=== PATIENT | male | born 1965 | race Caucasian/White ===

== ENCOUNTER 2017-11-01 13:53 | Inpatient (IN) | payer SELFPAY ==
[~2017-11-01] VITALS: Ht 172.7 cm; Wt 51.3 kg
[2017-11-01 15:13] LABS: PLATELET COUNT 355 x10^3mcL (130-400)
[2017-11-01 15:25] LABS: RED CELL DISTRIBUTION WIDTH 21.2 % (11.5-14.5)
[2017-11-01 15:27] LABS: CALCIUM 9.3 mg/dL (8.5-10.1); CARBON DIOXIDE 36.3 mmol/L (21-32); CHLORIDE SERUM 97 mmol/L (98-107); CREATININE SERUM 1.2 mg/dL (0.7-1.3); GFR1 > 60 mL/min; GLUCOSE SERUM 187 mg/dL (74-106); POTASSIUM SERUM 3.3 mmol/L (3.5-5.1); SODIUM SERUM 142 mmol/L (136-145)
[2017-11-01 15:41] LABS: ALBUMIN 3.9 g/dL (3.4-5.0); ALKALINE PHOSPHATASE 89 U/L (46-116); ALT/SGPT 22 U/L (16-63); AST/SGOT 13 U/L (15-37); LIPASE 85 IU/L (73-393); TOTAL PROTEIN, SERUM 7.4 g/dL (6.4-8.2)
[2017-11-01 15:45] LABS: BAND NEUTROPHIL 3 % (0-10); BASOPHIL 0 % (0-2); MONOCYTE 5 % (0-7); SEGMENTED NEUTROPHILS 85 % (37-75)
[2017-11-01 15:46] LABS: rbc morphology (normal/abnorm) ABNORMAL (NORMAL)
[2017-11-01] MEDS ORDERED: GOOD SENSE OMEP20 MG PO (16:45)
[2017-11-01 18:33] LABS: CHOLESTEROL/HDL RATIO 2.4
[2017-11-01 18:44] LABS: T3 TOTAL 0.62 ng/mL
[2017-11-01 19:05] LABS: FREE T4 1.32 ng/dL (0.76-1.46); FREE THYROXINE INDEX 3.4 ug/dL (1.4-4.5); T4(THYROXINE) 9.4 ug/dL (4.7-13.3)
[2017-11-01 21:17] VITALS: BP 128/77
[2017-11-02 00:22] VITALS: BP 128/77
[2017-11-02 01:04] LABS: UA SPECIFIC GRAVITY 1.025 (1.005-1.035); microscopic required? YES; urine erythrocyte 3+ (NEGATIVE)
[2017-11-02 01:12] LABS: AMPHETAMINE QUAL UR POSITIVE (See below)
[2017-11-02 05:58] LABS: CALCIUM 7.6 mg/dL (8.5-10.1); CARBON DIOXIDE 28.8 mmol/L (21-32); CHLORIDE SERUM 101 mmol/L (98-107); CREATININE SERUM 1.3 mg/dL (0.7-1.3); GFR1 > 60 mL/min; GLUCOSE SERUM 145 mg/dL (74-106); MAGNESIUM 1.8 mg/dL (1.8-2.4); PHOSPHOROUS 5.1 mg/dL (2.5-4.9); POTASSIUM SERUM 3.8 mmol/L (3.5-5.1); SODIUM SERUM 139 mmol/L (136-145)
[2017-11-02 06:10] VITALS: BP 113/83
[2017-11-02 09:09] VITALS: BP 120/78
[2017-11-02 11:18] LABS: PLATELET COUNT 283 x10^3mcL (130-400); RED CELL DISTRIBUTION WIDTH 21.6 % (11.5-14.5)
[2017-11-02 13:18] LABS: BAND NEUTROPHIL 11 % (0-10); MONOCYTE 3 % (0-7); SEGMENTED NEUTROPHILS 80 % (37-75); rbc morphology (normal/abnorm) ABNORMAL (NORMAL)
[2017-11-02 13:19] LABS: PLATELET MORPHOLOGY PLATELETS NORMAL
[2017-11-02 13:20] VITALS: BP 107/76
[2017-11-02 17:00] VITALS: BP 108/69
[2017-11-02 20:57] VITALS: BP 113/79
[2017-11-03 05:37] VITALS: BP 126/75
[2017-11-03 07:04] LABS: BASOPHIL % 0.1 % (0-2); PLATELET COUNT 215 x10^3mcL (130-400)
[2017-11-03 07:27] LABS: RED CELL DISTRIBUTION WIDTH 21.6 % (11.5-14.5)
[2017-11-03 07:41] LABS: CALCIUM 8.1 mg/dL (8.5-10.1); CHLORIDE SERUM 104 mmol/L (98-107); CREATININE SERUM 1.2 mg/dL (0.7-1.3); GFR1 > 60 mL/min; GLUCOSE SERUM 103 mg/dL (74-106); MAGNESIUM 2.1 mg/dL (1.8-2.4); PHOSPHOROUS 3.2 mg/dL (2.5-4.9); POTASSIUM SERUM 4.3 mmol/L (3.5-5.1); SODIUM SERUM 142 mmol/L (136-145)
[2017-11-03 09:04] VITALS: BP 122/80
[2017-11-03 09:16] LABS: rbc morphology (normal/abnorm) ABNORMAL (NORMAL); schistocyte (helmet cell) 1+
[2017-11-03 12:38] VITALS: BP 115/74
[2017-11-03 17:23] VITALS: BP 121/77
[2017-11-03 20:50] VITALS: BP 122/76
[2017-11-04 05:17] VITALS: BP 120/81
[2017-11-04 07:12] LABS: BASOPHIL % 0.5 % (0-2); PLATELET COUNT 200 x10^3mcL (130-400)
[2017-11-04 07:15] LABS: RED CELL DISTRIBUTION WIDTH 20.6 % (11.5-14.5)
[2017-11-04 07:53] LABS: CHLORIDE SERUM 107 mmol/L (98-107); CREATININE SERUM 0.9 mg/dL (0.7-1.3); GFR1 > 60 mL/min; GLUCOSE SERUM 99 mg/dL (74-106); PHOSPHOROUS 2.3 mg/dL (2.5-4.9); POTASSIUM SERUM 4.1 mmol/L (3.5-5.1); SODIUM SERUM 145 mmol/L (136-145)
[2017-11-04 08:29] LABS: rbc morphology (normal/abnorm) ABNORMAL (NORMAL)
[2017-11-04 09:32] VITALS: BP 128/86
[2017-11-04 09:32] LABS: HELICOBACTER PYLORI IGG QNT 4.17 (0.00-0.79)
[2017-11-04 13:14] VITALS: BP 120/77
[2017-11-04 17:17] VITALS: BP 127/81
[2017-11-04 20:28] VITALS: BP 114/73
[2017-11-05 05:17] VITALS: BP 102/61
[2017-11-05 07:53] LABS: BASOPHIL % 0.5 % (0-2); PLATELET COUNT 208 x10^3mcL (130-400)
[2017-11-05 07:55] LABS: CALCIUM 8.1 mg/dL (8.5-10.1); CARBON DIOXIDE 28.4 mmol/L (21-32); CHLORIDE SERUM 105 mmol/L (98-107); CREATININE SERUM 0.8 mg/dL (0.7-1.3); GFR1 > 60 mL/min; GLUCOSE SERUM 89 mg/dL (74-106); MAGNESIUM 1.8 mg/dL (1.8-2.4); POTASSIUM SERUM 3.6 mmol/L (3.5-5.1); SODIUM SERUM 140 mmol/L (136-145)
[2017-11-05 08:50] VITALS: BP 98/56
[2017-11-05 10:12] LABS: ovalocyte/elliptocyte 1+
[2017-11-05 10:23] LABS: rbc morphology (normal/abnorm) ABNORMAL (NORMAL)
[2017-11-05] MEDS ORDERED: BIA500 PO (11:02)
[2017-11-05] MEDS ORDERED: AMO500 PO (11:03)
[2017-11-05] MEDS ORDERED: FLO4 PO (11:04)
[2017-11-05] MEDS ORDERED: REG10 PO (11:07)
[2017-11-05 11:45] VITALS: BP 98/56
[2017-11-05] MEDS ORDERED: APAP/HYDROCODON1 T13 PO (13:15)
== END 2017-11-05 14:30 | disposition home or self-care (01) | DRG 853 ==
LOC: ED 13:53 → DU 16:47
PROVIDERS: Emergency Medicine; Family Medicine; Internal Medicine; Surgery
PROC: 0TJ Urinary System, Inspection (ICD-10-PCS; 2017-11-01)
PROC: 0DQ60ZZ Repair Stomach, Open Approach (ICD-10-PCS; principal; 2017-11-01 17:30)
DX: A41.9 Sepsis, unspecified organism (principal); K63.1 Perforation of intestine (nontraumatic); N17.0 Acute kidney failure with tubular necrosis; K25.5 Chronic or unspecified gastric ulcer with perforation; Z68.1 Body mass index [BMI] 19.9 or less, adult; F17.210 Nicotine dependence, cigarettes, uncomplicated; E87.6 Hypokalemia; E83.39 Other disorders of phosphorus metabolism; E83.51 Hypocalcemia; N35.9 Urethral stricture, unspecified; R63.6 Underweight; Z79.899 Other long term (current) drug therapy; Z71.6 Tobacco abuse counseling
CPT/HCPCS: 36600; 83880; 84439; 94150; 97110-GP; 97116-GP; 97535-GP; A9698; C9113; J1170; J2250; J2270; J2543; J3010; J3480; J3490; J7030; J7042; J8597; Q0092; Q9967